=== PATIENT | male | born 1955 | race Two or more races ===

== ENCOUNTER 2023-11-07 07:15 | Outpatient (CLI) | payer OTHER | END 2023-11-07 07:26 | disposition home or self-care (01) | LOC: NUCLEAR 07:15 | PROVIDERS: ATTEND Urology | DX: I25.110 Atherosclerotic heart disease of native coronary artery with unstable angina pectoris (principal); I65.29 Occlusion and stenosis of unspecified carotid artery; C61 Malignant neoplasm of prostate | CPT/HCPCS: 78452; 93017; 93880; A9500; J1250 ==

== ENCOUNTER 2023-11-15 08:00 | Inpatient (IN) | payer OTHER ==
[~2023-11-15] VITALS: Ht 188 cm; Wt 86.2 kg
[2023-11-15 08:20] LABS: PH,URINE 5.5 (5.0-8.0); URINE APPEARANCE Clear; URINE BILIRRUBIN Negative (NEGATIVE); URINE COLOR Dark Yellow; URINE GLUCOSE Negative (NEGATIVE); URINE LEUKOCYTE Negative; URINE NITRATE Negative; URINE PROTEIN Trace (NEGATIVE)
[2023-11-15 08:21] LABS: HEMATOCRIT 45.5 % (39.0-48.0); HEMOGLOBIN 15.4 g/dL (13-16.00); MEAN CELL VOLUME 89.9 fL (80.0-100.00); MEAN CORPUSCULAR HEMOGLOBIN 30.5 pg (27.00-32.0); MEAN CORPUSCULAR HGB CONC 33.9 g/dl (32.0-36.0); PLATELET COUNT 269 K/uL (150-450); RED BLOOD COUNT 5.06 M/uL (4.00-6.00)
[2023-11-15 08:24] LABS: URINE EPITHELIAL CELLS 2.4 uL (0.0-38.8); URINE RBC 56.1 uL (0.0-20.8); URINE WBC 8.4 uL (0.0-23.2)
[2023-11-15 08:41] LABS: URINE BACTERIA 2.5 uL (0.0-1933); URINE BLOOD Trace
[2023-11-15 08:41] LABS: INR 0.98; PARTIAL THROMBOPLASTIN TIME 27.7 SECONDS (22.0-34.0); PROTHROMBIN TIME 10.3 SECONDS (9.0-11.5)
[2023-11-15 08:45] LABS: CREATININE SERUM 0.94 mg/dL (0.70-1.30); GFR 80.29; POTASSIUM 4.54 mEq/L (3.5-5.1)
[2023-11-15] MEDS ORDERED: TAMS0.4C PO (09:49)
[2023-11-23] MEDS ORDERED: GENTAMICIN SULFATE 40 MG/ML VIAL IV SCH ×2 (06:00→17:00)
[2023-11-23] MEDS ORDERED: METRONIDAZOLE/SODIUM CHLORIDE 500 MG/100 ML PIGGYBACK IV SCH ×2 (06:00→17:00)
[2023-11-23] MEDS ORDERED: ENOXAPARIN SODIUM 40 MG/0.4 ML SYRINGE SUBCUTANEO ONE ×2 (06:12→08:45)
[2023-11-23] MEDS ORDERED: METRONIDAZOLE/SODIUM CHLORIDE 500 MG/100 ML PIGGYBACK IV ONE ×3 (06:13→17:41)
[2023-11-23] MEDS ORDERED: GENTAMICIN SULFATE 40 MG/ML VIAL ONE ×2 (06:13→17:41)
[2023-11-23] MEDS ORDERED: ENALAPRILAT DIHYDRATE 1.25 MG/ML VIAL IV ONE ×3 (07:46→16:58)
[2023-11-23] MEDS ORDERED: BUPIVACAINE HCL/PF 0.5% 30ML ML ONE (08:04)
[2023-11-23] MEDS ORDERED: BUPIVACAINE HCL/PF 0.5% 5MG/ML VIAL IJ ONE (08:45)
[2023-11-23] MEDS ORDERED: GENTAMICIN SULFATE 40 MG/ML VIAL IV ONE (08:45)
[2023-11-23] MEDS ORDERED: HEMOSTATIC MATRIX 1 KIT KIT TOP ONE ×2 (11:13→11:15)
[2023-11-23] MEDS ORDERED: SURGIFLO APPLICATOR 1 EACH APPL TOP ONE (11:13)
[2023-11-23] MEDS ORDERED: SUGAMMADEX SODIUM 200 MG/2 ML VIAL IV ONE ×2 (12:32→12:45)
[2023-11-23] MEDS ORDERED: RINGERS SOLUTION,LACTATED 1,000 ML IV SCH (13:15)
[2023-11-23] MEDS ORDERED: OxyCODONE HCL/APAP UD (PERCOCET) PO PRN (13:15)
[2023-11-23] MEDS ORDERED: ONDANSETRON HCL 2 MG/ML VIAL IV PRN (13:15)
[2023-11-23] MEDS ORDERED: GABAPENTIN 300 MG CAPSULE PO SCH (17:00)
[2023-11-23] MEDS ORDERED: KETOROLAC TROMETHAMINE 30 MG VIAL ONE (17:42)
[2023-11-23] MEDS ORDERED: KETOROLAC TROMETHAMINE 30 MG VIAL IM SCH (18:00)
[2023-11-23] MEDS ORDERED: GABAPENTIN 300 MG CAPSULE PO ONE (18:01)
[2023-11-23] MEDS ORDERED: hydrALAZINE HCL 20 MG VIAL ONE (18:35)
[2023-11-23] MEDS ORDERED: hydrALAZINE HCL 20 MG VIAL IV PRN (19:30)
[2023-11-23] MEDS ORDERED: FAMOTIDINE/PF 20 MG/2 ML VIAL IV SCH (21:00)
[2023-11-24 07:20] LABS: HEMATOCRIT 40.2 % (39.0-48.0); HEMOGLOBIN 13.6 g/dL (13-16.00); MEAN CELL VOLUME 88.2 fL (80.0-100.00); MEAN CORPUSCULAR HEMOGLOBIN 29.8 pg (27.00-32.0); MEAN CORPUSCULAR HGB CONC 33.8 g/dl (32.0-36.0); PLATELET COUNT 228 K/uL (150-450); RED BLOOD COUNT 4.56 M/uL (4.00-6.00); RED CELL DISTRIBUTION WIDTH 14.7 % (11.5-14.5)
[2023-11-24 07:53] LABS: ALBUMIN 3.2 gm/dL (3.4-5.0); CREATININE SERUM 0.95 mg/dL (0.70-1.30); GFR 79.32
[2023-11-24] MEDS ORDERED: DOCUSATE SODIUM 100MG CAP PO SCH (09:00)
[2023-11-24] MEDS ORDERED: SURGIFLO APPLICATOR 1 EACH APPL TOP ONE (14:15)
[2023-11-24] MEDS ORDERED: ENOXAPARIN SODIUM 40 MG/0.4 ML SYRINGE SUBCUTANEO SCH (17:00)
== END 2023-11-24 17:57 | disposition home or self-care (01) | DRG 708 ==
LOC: SURH 11-23 05:06 → O/R 11-23 05:06 → SURH 11-23 07:00
PROVIDERS: ADMIT Urology; ATTEND Urology
PROC: 8E0W4CZ Robotic Assisted Procedure of Trunk Region, Percutaneous Endoscopic Approach (ICD-10-PCS; 2023-11-23)
PROC: 0VT04ZZ Resection of Prostate, Percutaneous Endoscopic Approach (ICD-10-PCS; principal; 2023-11-23 07:00)
DX: C61 Malignant neoplasm of prostate (principal); Z20.822 Contact with and (suspected) exposure to COVID-19
CPT/HCPCS: 55866; S2900